=== PATIENT | female | born 1960 | race American Indian/Alaskan Native ===

== ENCOUNTER 2017-09-22 15:35 | Emergency (ER) | payer BC, OTHER ==
[~2017-09-22] VITALS: Ht 165.1 cm; Wt 64.0 kg
[~2017-09-22 15:35] MED LIST: HYDR-569 PO
[2017-09-22 20:37] LABS: BASOPHILS # (AUTO) 0.1 X10'3 (0-0.2); EOSINOPHILS # (AUTO) 0.2 X10'3 (0-0.9); HEMATOCRIT 26.7 % (35.0-45.0); HEMOGLOBIN 8.9 g/dl (12.0-16.0); MEAN CORPUSCULAR HEMOGLOBIN 29.2 PG (27.0-31.0); MEAN CORPUSCULAR HGB CONC 33.1 % (33.0-36.5); MEAN CORPUSCULAR VOLUME 88.3 FL (78-98); MEAN PLATELET VOLUME 7.5 FL (7.4-10.4); MONOCYTES # (AUTO) 0.7 X10'3 (0-0.9); MONOCYTES % (AUTO) 9.1 % (2-12); NEUTROPHILS # (AUTO) 5.2 X10'3 (1.8-7.7); NEUTROPHILS % (AUTO) 63.9 % (42-75); PLATELET COUNT 427 X10'3 (140-440); RED BLOOD COUNT 3.03 X10'6 (4.20-5.60); RED CELL DISTRIBUTION WIDTH 22.4 % (11.5-14.5); WHITE BLOOD COUNT 8.1 X10'3 (4.5-11.0)
[2017-09-22 20:49] LABS: PARTIAL THROMBOPLASTIN TIME 25 SECONDS (22-32); PROTHROMBIN TIME 10.5 SECONDS (9.0-12.0)
[2017-09-22] MEDS ORDERED: normal saline 1000ml 1,000 ML IV ONE (20:50)
[2017-09-22 21:00] LABS: ALANINE AMINOTRANSFERASE 47 U/L (12-78); ALBUMIN 2.3 G/DL (3.4-5.0); ALBUMIN/GLOBULIN RATIO 0.4 (1.1-1.5); ALKALINE PHOSPHATASE 937 IU/L (46-116); ANION GAP 6 (8-16); ASPARTATE AMINO TRANSFERASE 58 U/L (10-37); BILIRUBIN,TOTAL 2.4 MG/DL (0.1-1.0); BLOOD UREA NITROGEN 16 MG/DL (7-18); BUN/CREATININE RATIO 21.3 (6.6-38.0); CALCIUM 8.3 MG/DL (8.5-10.1); CHLORIDE 103 MMOL/L (99-107); CREATININE 0.75 MG/DL (0.40-0.90); ETHANOL < 0.010 GM/DL (0.0-0.010); GLUCOSE 104 MG/DL (70-104); LIPASE 115 U/L (73-393); POTASSIUM 3.7 MMOL/L (3.5-5.1); SODIUM 140 MMOL/L (135-145); TOTAL CARBON DIOXIDE 30.7 MMOL/L (24-32); eGFR 80 ML/MIN
[2017-09-22 21:33] LABS: ANISOCYTOSIS 3+; PLATELET ESTIMATE NORMAL
[2017-09-22 21:35] LABS: MICROCYTOSIS 1+; STOMATOCYTES 2+
[2017-09-22 21:36] LABS: POLYCHROMASIA FEW
[2017-09-22 21:43] LABS: UA COLLECTION TYPE CLN CATCH MIDSTREAM
[2017-09-22 21:44] LABS: CLARITY,URINE CLEAR (Clear); COLOR,URINE YELLOW (Yellow); GLUCOSE, URINE NEGATIVE (Neg); KETONES,URINE NEGATIVE (Neg); LEUKOCYTE ESTERASE ,URINE NEGATIVE (Neg); NITRITES, URINE NEGATIVE (Neg); OCCULT BLOOD,URINE NEGATIVE (Neg); PROTEIN,URINE NEGATIVE (Neg)
[2017-09-22 21:55] LABS: URINE AMPHETAMINE SCREEN POSITIVE (Neg); URINE BARBITUATE SCREEN NEGATIVE (Neg); URINE BENZODIAZEPINES SCREEN POSITIVE (Neg); URINE CANNABINOID SCREEN POSITIVE (Neg); URINE COCAINE SCREEN NEGATIVE (Neg); URINE METHADONE SCREEN NEGATIVE (Neg); URINE OPIATE SCREEN POSITIVE (Neg); URINE PHENCYCLIDINE SCREEN NEGATIVE (Neg)
[2017-09-22] MEDS ORDERED: clindamycin 150mg capsule PO ONE (22:40)
[2017-09-22] MEDS ORDERED: spironolactone 25 MG tablet PO SCH (22:40)
[2017-09-22] MEDS ORDERED: furosemide 20MG tablet PO ONE (22:40)
[2017-09-22] MEDS ORDERED: LIDOcaine 1.5% w/epinephrine 1:200,000 5ml ampul IJ ONE (22:40)
[2017-09-22] MEDS ORDERED: FURO-150 PO (22:46)
[2017-09-22] MEDS ORDERED: CLIN-80 PO (22:46)
[2017-09-22] MEDS ORDERED: SPIR25TA PO (22:46)
[2017-09-22 23:31] VITALS: BP 115/77
== END 2017-09-22 23:33 | disposition home or self-care (01) ==
LOC: ER 15:35
DX: L02.31 Cutaneous abscess of buttock (principal); K72.90 Hepatic failure, unspecified without coma; F15.10 Other stimulant abuse, uncomplicated; F11.10 Opioid abuse, uncomplicated; R60.0 Localized edema; E46 Unspecified protein-calorie malnutrition; G89.29 Other chronic pain; Z90.49 Acquired absence of other specified parts of digestive tract; Z68.23 Body mass index [BMI] 23.0-23.9, adult; Z88.0 Allergy status to penicillin; Z88.2 Allergy status to sulfonamides; Z88.5 Allergy status to narcotic agent; Z88.8 Allergy status to other drugs, medicaments and biological substances; Z79.899 Other long term (current) drug therapy
CPT/HCPCS: 36415; 71045; 74176; 80053; 80305; 80320; 81003; 82140; 83690; 83880; 84484; 85025; 85610; 85730; 93005; 96360; 99285; A6449; J3490

== ENCOUNTER 2018-09-06 08:46 | Inpatient (IN) | payer BC, OTHER ==
[~2018-09-06] VITALS: Ht 165.1 cm; Wt 59.7 kg
[~2018-09-06 08:46] MED LIST changes: +FURO-150 PO; +HYDR-4383 PO; -HYDR-569 PO; +SPIR25TA PO
[2018-09-06] MEDS ORDERED: vancomycin/NS 1 GM ADD-VANTAGE 250 ML IV ONE (09:05)
[2018-09-06] MEDS ORDERED: normal saline 1000ML IV soln IV ONE (09:05)
[2018-09-06 09:38] LABS: BASOPHILS % (AUTO) 0.8 % (0-1); EOSINOPHILS % (AUTO) 0.3 % (0-6); HEMATOCRIT 31.4 % (35.0-45.0); HEMOGLOBIN 10.7 g/dl (12.0-16.0); LYMPHOCYTES # (AUTO) 0.5 X10'3 (1.1-4.8); LYMPHOCYTES % (AUTO) 8.5 % (21-51); MEAN CORPUSCULAR HEMOGLOBIN 31.3 PG (27.0-31.0); MEAN CORPUSCULAR HGB CONC 34.1 g/dL (33.0-36.5); MEAN CORPUSCULAR VOLUME 91.9 FL (78-98); MEAN PLATELET VOLUME 7.1 FL (7.4-10.4); MONOCYTES # (AUTO) 0.4 X10'3 (0-0.9); MONOCYTES % (AUTO) 6.2 % (2-12); NEUTROPHILS # (AUTO) 4.8 X10'3 (1.8-7.7); NEUTROPHILS % (AUTO) 84.2 % (42-75); PLATELET COUNT 212 X10'3 (140-440); RED BLOOD COUNT 3.41 X10'6 (4.20-5.60); RED CELL DISTRIBUTION WIDTH 19.4 % (11.5-14.5); WHITE BLOOD COUNT 5.7 X10'3 (4.5-11.0)
[2018-09-06] MEDS ORDERED: fentaNYL/PF 50MCG/1 ML 2ML syringe IV ONE (09:45)
[2018-09-06 09:48] LABS: INR 1.1 INR; PARTIAL THROMBOPLASTIN TIME 26 SECONDS (22-32); PROTHROMBIN TIME 10.7 SECONDS (9.0-12.0)
[2018-09-06 09:59] LABS: ALANINE AMINOTRANSFERASE 28 U/L (12-78); ALBUMIN 3.6 G/DL (3.4-5.0); ALBUMIN/GLOBULIN RATIO 0.9 (1.1-1.5); ALKALINE PHOSPHATASE 190 IU/L (46-116); ANION GAP 11 (8-16); ASPARTATE AMINO TRANSFERASE 33 U/L (10-37); BILIRUBIN,TOTAL 0.2 MG/DL (0.1-1.0); BLOOD UREA NITROGEN 30 MG/DL (7-18); BUN/CREATININE RATIO 44.1 (6.6-38.0); CALCIUM 9.4 MG/DL (8.5-10.1); CHLORIDE 106 MMOL/L (99-107); CREATININE 0.68 MG/DL (0.40-0.90); GLUCOSE 136 MG/DL (70-104); POTASSIUM 3.6 MMOL/L (3.5-5.1); SODIUM 143 MMOL/L (135-145); TOTAL CARBON DIOXIDE 25.7 MMOL/L (24-32); TOTAL PROTEIN 7.8 G/DL (6.4-8.2); eGFR 89 ML/MIN
[2018-09-06] MEDS ORDERED: iohexol 300mg/ml 100ml inj. ONE (10:12)
[2018-09-06 10:19] LABS: ANISOCYTOSIS 2+; ELLIPTOCYTES 2+; PLATELET ESTIMATE NORMAL; POLYCHROMASIA FEW; TEAR DROP CELLS FEW
[2018-09-06] MEDS ORDERED: CefTRIAXone 2gm/D5W 50ml 50 ML IV ONE ×2 (11:35→12:20)
[2018-09-06] MEDS ORDERED: potassium Cl 40MEQ/NS 500ml 500 ML IV PRN ×2 (11:45)
[2018-09-06] MEDS ORDERED: ondansetron/PF 4mg/2ml inj IV PRN (11:45)
[2018-09-06] MEDS ORDERED: HYDROcodone/acetaminophen 5mg/325mg tablet PO PRN (11:45)
[2018-09-06] MEDS ORDERED: mag hydrox/Alum hydrox/simeth 30ml oral suspension PO PRN (11:45)
[2018-09-06] MEDS ORDERED: bisacodyl 10mg suppository rectal RC PRN (11:45)
[2018-09-06] MEDS ORDERED: magnesium 4gm in 100ml NS 100 ML IV PRN (11:45)
[2018-09-06] MEDS ORDERED: HYDROcodone/acetaminophen 10/325mg tab PO PRN (11:45)
[2018-09-06] MEDS ORDERED: acetaminophen 325mg tablet PO PRN (11:45)
[2018-09-06] MEDS ORDERED: magnesium Cl slow-release 64mg tablet PO PRN (11:45)
[2018-09-06] MEDS ORDERED: potassium Cl 20 mEq SR tablet PO PRN ×2 (11:45)
[2018-09-06] MEDS ORDERED: magnesium hydroxide 30ml (MOM) UD suspension PO PRN (11:45)
[2018-09-06] MEDS ORDERED: magnesium 2GM in 50ml NS 50 ML IV PRN (11:45)
[2018-09-06] MEDS ORDERED: OXYC60TA7 PO (12:23)
[2018-09-06] MEDS ORDERED: HYDR4TAB45 PO (12:24)
[2018-09-06] MEDS ORDERED: LORA0.5T PO (12:24)
[2018-09-06] MEDS ORDERED: MULT-933 PO (12:25)
[2018-09-06] MEDS ORDERED: CLON-514 PO (12:29)
[2018-09-06] MEDS: potassium Cl 20mEq in NS 1,000 ML IV SCH ×3 (12:52→23:58)
[2018-09-06] MEDS: HYDROmorphone 2mg tablet PO PRN ×2 (14:17→22:35)
[2018-09-06 15:45] VITALS: BP 106/62
--- NOTE | 2018-09-06 15:45 | NUR ---
RECEIVED TO ROOM 4008, A/O X 4
[2018-09-06] MEDS: oxyCODONE SR 40mg (sust release) tab PO SCH ×2 (17:36→23:58)
[2018-09-06 18:00] VITALS: BP 113/69
--- NOTE | 2018-09-06 18:30 | NUR ---
Received report from Jeanie BOLANOS, assumed care of patient.
[2018-09-06] MEDS ORDERED: vancomycin/NS 1 GM ADD-VANTAGE 250 ML IV SCH (20:00)
[2018-09-06] MEDS: clonazePAM 1mg tablet PO SCH (20:16)
[2018-09-06] MEDS: docusate sod 100mg capsule PO SCH (20:16)
[2018-09-06] MEDS: VANCOMYCIN 750MG IV in NS 250 ML IV SCH (21:45)
[2018-09-06 22:00] VITALS: BP 104/59
[2018-09-07] VITALS (18 sets, daily range): BP systolic 109–145; BP diastolic 59–109
[2018-09-07] MEDS: HYDROmorphone 2mg tablet PO PRN ×3 (02:54→19:57)
[2018-09-07 06:04] LABS: BASOPHILS % (AUTO) 1.3 % (0-1); EOSINOPHILS # (AUTO) 0.1 X10'3 (0-0.9); EOSINOPHILS % (AUTO) 3.5 % (0-6); HEMATOCRIT 25.2 % (35.0-45.0); HEMOGLOBIN 8.5 g/dl (12.0-16.0); LYMPHOCYTES # (AUTO) 0.7 X10'3 (1.1-4.8); LYMPHOCYTES % (AUTO) 17.3 % (21-51); MEAN CORPUSCULAR HEMOGLOBIN 31.3 PG (27.0-31.0); MEAN CORPUSCULAR HGB CONC 33.8 g/dL (33.0-36.5); MEAN CORPUSCULAR VOLUME 92.6 FL (78-98); MEAN PLATELET VOLUME 7.1 FL (7.4-10.4); MONOCYTES # (AUTO) 0.4 X10'3 (0-0.9); MONOCYTES % (AUTO) 9.5 % (2-12); NEUTROPHILS # (AUTO) 2.6 X10'3 (1.8-7.7); NEUTROPHILS % (AUTO) 68.4 % (42-75); PLATELET COUNT 160 X10'3 (140-440); RED BLOOD COUNT 2.72 X10'6 (4.20-5.60); RED CELL DISTRIBUTION WIDTH 19.3 % (11.5-14.5); WHITE BLOOD COUNT 3.9 X10'3 (4.5-11.0)
[2018-09-07 06:16] LABS: ALANINE AMINOTRANSFERASE 20 U/L (12-78); ALBUMIN 2.7 G/DL (3.4-5.0); ALBUMIN/GLOBULIN RATIO 0.8 (1.1-1.5); ALKALINE PHOSPHATASE 147 IU/L (46-116); ANION GAP 8 (8-16); ASPARTATE AMINO TRANSFERASE 27 U/L (10-37); BILIRUBIN,TOTAL 0.2 MG/DL (0.1-1.0); BLOOD UREA NITROGEN 18 MG/DL (7-18); BUN/CREATININE RATIO 36.7 (6.6-38.0); CALCIUM 8.4 MG/DL (8.5-10.1); CHLORIDE 109 MMOL/L (99-107); CREATININE 0.49 MG/DL (0.40-0.90); GLUCOSE 90 MG/DL (70-104); MAGNESIUM 1.7 MG/DL (1.5-2.4); POTASSIUM 3.9 MMOL/L (3.5-5.1); SODIUM 142 MMOL/L (135-145); TOTAL CARBON DIOXIDE 25.5 MMOL/L (24-32); eGFR > 90 ML/MIN
[2018-09-07 06:21] LABS: INR 1.1 INR; PROTHROMBIN TIME 11.3 SECONDS (9.0-12.0)
--- NOTE | 2018-09-07 06:34 | NUR ---
Report given to Ethel BOLANOS and Reena BOLANOS.
[2018-09-07] MEDS: K and/or MAG REPLACEMENT MC SCH (07:53)
[2018-09-07] MEDS: CefTRIAXone/D5W-Rocephin 1gm 50 ML IV SCH (08:00)
[2018-09-07] MEDS: enoxaparin 40mg/0.4ml syringe SUBCUT SCH (09:08)
[2018-09-07] MEDS: multivitamins, therapeutics tablet PO SCH (09:09)
[2018-09-07] MEDS: docusate sod 100mg capsule PO SCH ×2 (09:09→19:53)
[2018-09-07] MEDS: oxyCODONE SR 40mg (sust release) tab PO SCH ×2 (09:09→16:00)
[2018-09-07] MEDS: clonazePAM 1mg tablet PO SCH ×2 (09:09→21:02)
[2018-09-07] MEDS: VANCOMYCIN 750MG IV in NS 250 ML IV SCH ×2 (11:25→21:52)
[2018-09-07] MEDS ORDERED: heparin sodium, porcine/PF 100unit/ml 5ML syringe IV ONE (11:35)
--- NOTE | 2018-09-07 14:14 | NUR ---
Malnutrition consult: Pt admit w/ L deltoid cellulitis w/ abscess/carbuncle to OR for I&D today per MD. Pt provided written/verbal high protein ed w/ RD contact information. Pt has hx finishing chemo/radiation in July this year for non-Hodgkins lymphoma and sees oncologist. Pt unable to tolerate most foods r/t diarrhea per pt and mainly drinks ONS vanilla boosts at home for nutrition needs. Pt reports 2000kcal diet mainly from 8 Boosts/day while at [place] and only eats cream of wheat, almond milk, and agrees to vanilla ensure high protein QID to receive 2 at dinners once diet advances to regular post-op. No neutropenic diet per MD given neutrophils WNL even though WBC 3.9. Pt PO 100% clear liquid diet and states 130# (59kg) last teusday at PCP has been gaining wt past year; no visible muscle/fat wasting at this time. Current pt wt likely error since not scaled; RD d/w RN for new scaled wt. At this time pt does not meet minimum 2 malnutrition criteria. Will continue to monitor. Addendum: 09/07/18 at [address] Amended: Links added. Addendum: 09/07/18 at [address] F/u pt scaled wt 59.7 kg per RN; pt has no wt loss at this time.
[2018-09-07] MEDS ORDERED: ondansetron/PF 4mg/2ml inj ONE (16:06)
[2018-09-07] MEDS ORDERED: neostigmine methylsulfate 1 MG/ML 10ml vial ONE (16:06)
[2018-09-07] MEDS ORDERED: sevoflurane 250ml liquid IH ONE (16:06)
[2018-09-07] MEDS ORDERED: glycopyrrolate 0.2mg/ml inj ONE (16:06)
[2018-09-07] MEDS ORDERED: ePHEDrine 50MG/ML INJ. ONE (16:06)
[2018-09-07] MEDS ORDERED: fentaNYL/PF 50MCG/1 ML 2ML syringe ONE ×2 (16:08→16:42)
[2018-09-07] MEDS ORDERED: rocuronium 10mg/ml inj IV ONE (16:25)
[2018-09-07] MEDS ORDERED: propofol inj 20 ML IV ONE (16:25)
[2018-09-07] MEDS ORDERED: dexamethasone sod phosphate 4mg/ml inj. ONE (16:25)
[2018-09-07] MEDS ORDERED: LIDOcaine 2% (20mg/ml) 5ml vial ONE (16:25)
[2018-09-07] MEDS ORDERED: midazolam 2 mg/2 ml injection ONE (16:56)
[2018-09-07] MEDS ORDERED: ketamine 50 mg/ml 10ml vial ONE (16:57)
[2018-09-07] MEDS ORDERED: ringers solution, lacted 1,000 ML IV SCH (17:11)
[2018-09-07] MEDS ORDERED: meperidine/PF 25mg/ml syringe IV PRN (17:15)
[2018-09-07] MEDS ORDERED: HYDROmorphone inj. 0.5 MG/0.5 ML DISP.SYRIN IV PRN (17:15)
[2018-09-07] MEDS ORDERED: ondansetron/PF 4mg/2ml inj IV PRN ×2 (17:15→17:55)
[2018-09-07] MEDS ORDERED: meperidine/PF 50mg/ml syringe ONE (17:26)
--- NOTE | 2018-09-07 17:38 | NUR ---
Received from OR via , accompanied by Anesthesiologist DR DUNCAN and report given by Anesthesiolgist. AWAKE AND C/O SEVERE LT SHOULDER INCISION PAIN. WILL MEDICATE. VITALS STABLE. DRESSING DI.
[2018-09-07] MEDS: HYDROmorphone inj. 0.5 MG/0.5 ML DISP.SYRIN IV PRN ×2 (17:47→18:45)
--- NOTE | 2018-09-07 17:48 | NUR ---
Report called to receiving nurse. Transferred via BED Belongings . Special Issues communicated to receiving nurse. AWAKE AND ORIENTED. VITALS STABLE. DRESSING DI. STATES PAIN IMPROVING. TO ORTHO RM 4000 AT THIS TIME.
[2018-09-07] MEDS ORDERED: bisacodyl 10mg suppository rectal RC PRN (17:55)
[2018-09-07] MEDS ORDERED: diphenhydrAMINE 25mg capsule PO PRN ×2 (17:55)
[2018-09-07] MEDS: meperidine/PF 25mg/ml syringe IV PRN ×4 (17:55→18:33)
[2018-09-07] MEDS ORDERED: acetaminophen 325mg tablet PO PRN (17:55)
[2018-09-07] MEDS ORDERED: magnesium hydroxide 30ml (MOM) UD suspension PO PRN (17:55)
[2018-09-07 18:32] LABS: HEMATOCRIT 25.3 % (35.0-45.0); HEMOGLOBIN 8.6 g/dl (12.0-16.0); MEAN CORPUSCULAR HEMOGLOBIN 31.3 PG (27.0-31.0); MEAN CORPUSCULAR HGB CONC 33.9 g/dL (33.0-36.5); MEAN CORPUSCULAR VOLUME 92.4 FL (78-98); MEAN PLATELET VOLUME 7.5 FL (7.4-10.4); PLATELET COUNT 153 X10'3 (140-440); RED BLOOD COUNT 2.74 X10'6 (4.20-5.60); RED CELL DISTRIBUTION WIDTH 18.7 % (11.5-14.5); WHITE BLOOD COUNT 3.9 X10'3 (4.5-11.0)
[2018-09-07] MEDS ORDERED: oxyCODONE SR 40mg (sust release) tab PO ONE (19:10)
[2018-09-07] MEDS: LORazepam 0.5 MG tablet PO PRN (19:13)
[2018-09-07] MEDS ORDERED: HYDROmorphone 2mg/ml vial IV PRN (19:25)
[2018-09-07] MEDS: sennosides 8.6mg tablet PO SCH (19:53)
[2018-09-07] MEDS: ketorolac trometh. 30mg/ml inj. IV SCH (19:57)
[2018-09-07] MEDS: potassium Cl 20mEq in NS 1,000 ML IV SCH (21:51)
[2018-09-07 23:08] LABS: CLARITY,URINE CLEAR (Clear); COLOR,URINE YELLOW (Yellow); GLUCOSE, URINE NEGATIVE (Neg); KETONES,URINE NEGATIVE (Neg); LEUKOCYTE ESTERASE ,URINE NEGATIVE (Neg); NITRITES, URINE NEGATIVE (Neg); OCCULT BLOOD,URINE LARGE (Neg); PH,URINE 5.5 (4.8-8.0); PROTEIN,URINE NEGATIVE (Neg); UROBILINOGEN,URINE 0.2 E.U/dL (0.2-1.0)
[2018-09-07 23:10] LABS: UA COLLECTION TYPE CLN CATCH MIDSTREAM
[2018-09-07 23:21] LABS: URINE AMPHETAMINE SCREEN NEGATIVE (Neg); URINE BARBITUATE SCREEN NEGATIVE (Neg); URINE BENZODIAZEPINES SCREEN POSITIVE (Neg); URINE CANNABINOID SCREEN NEGATIVE (Neg); URINE COCAINE SCREEN NEGATIVE (Neg); URINE METHADONE SCREEN NEGATIVE (Neg); URINE OPIATE SCREEN POSITIVE (Neg); URINE PHENCYCLIDINE SCREEN NEGATIVE (Neg)
[2018-09-07 23:38] LABS: BACTERIA,URINE FEW /HPF (Neg); MUCUS STRANDS MANY /LPF (Neg); SQUAMOUS EPITHELIAL CELL,UR MANY /LPF (FEW); WBC,URINE 0-4 /HPF (0-4)
[2018-09-07 23:39] LABS: RBC,URINE 50-100 /HPF (0-2)
[2018-09-08] VITALS (12 sets, daily range): BP systolic 96–133; BP diastolic 53–77
[2018-09-08] MEDS: HYDROmorphone 2mg tablet PO PRN ×6 (00:11→20:52)
[2018-09-08] MEDS: oxyCODONE SR 40mg (sust release) tab PO SCH ×3 (01:06→15:40)
[2018-09-08] MEDS: ketorolac trometh. 30mg/ml inj. IV SCH ×3 (02:08→13:22)
--- NOTE | 2018-09-08 06:00 | NUR ---
Patient in room ORTHO 4008. I have received report from ROSETTE BOLANOS and had the opportunity to ask questions and assume patient care.
[2018-09-08 06:01] LABS: BASOPHILS % (AUTO) 0.9 % (0-1); EOSINOPHILS % (AUTO) 1.2 % (0-6); HEMOGLOBIN 7.1 g/dl (12.0-16.0); LYMPHOCYTES # (AUTO) 0.6 X10'3 (1.1-4.8); LYMPHOCYTES % (AUTO) 19.7 % (21-51); MEAN CORPUSCULAR HEMOGLOBIN 31.4 PG (27.0-31.0); MEAN CORPUSCULAR HGB CONC 33.8 g/dL (33.0-36.5); MEAN CORPUSCULAR VOLUME 92.7 FL (78-98); MEAN PLATELET VOLUME 7.2 FL (7.4-10.4); MONOCYTES # (AUTO) 0.3 X10'3 (0-0.9); MONOCYTES % (AUTO) 8.4 % (2-12); NEUTROPHILS # (AUTO) 2.3 X10'3 (1.8-7.7); NEUTROPHILS % (AUTO) 69.8 % (42-75); PLATELET COUNT 138 X10'3 (140-440); RED BLOOD COUNT 2.25 X10'6 (4.20-5.60); RED CELL DISTRIBUTION WIDTH 18.8 % (11.5-14.5); WHITE BLOOD COUNT 3.3 X10'3 (4.5-11.0)
[2018-09-08 06:07] LABS: HEMATOCRIT 20.9 % (35.0-45.0)
--- NOTE | 2018-09-08 06:24 | NUR ---
Report given to Anirudh BOLANOS.
[2018-09-08 06:25] LABS: ALANINE AMINOTRANSFERASE 19 U/L (12-78); ALBUMIN 2.4 G/DL (3.4-5.0); ALBUMIN/GLOBULIN RATIO 0.9 (1.1-1.5); ALKALINE PHOSPHATASE 124 IU/L (46-116); ANION GAP 8 (8-16); ASPARTATE AMINO TRANSFERASE 23 U/L (10-37); BILIRUBIN,TOTAL 0.2 MG/DL (0.1-1.0); BLOOD UREA NITROGEN 16 MG/DL (7-18); BUN/CREATININE RATIO 29.6 (6.6-38.0); CALCIUM 8.1 MG/DL (8.5-10.1); CHLORIDE 108 MMOL/L (99-107); CREATININE 0.54 MG/DL (0.40-0.90); GLUCOSE 72 MG/DL (70-104); MAGNESIUM 1.7 MG/DL (1.5-2.4); POTASSIUM 3.8 MMOL/L (3.5-5.1); SODIUM 142 MMOL/L (135-145); TOTAL CARBON DIOXIDE 25.8 MMOL/L (24-32); TOTAL PROTEIN 5.2 G/DL (6.4-8.2); eGFR > 90 ML/MIN
--- NOTE | 2018-09-08 06:42 | NUR ---
PAGER ID: [phone] MESSAGE: LILLIANA [phone] RE: FRANCIA [phone] CRITICAL HCT 20.9 ALBIN LÓPEZ ORTHO AWARE, WILL NOTIFY DAY HOSPITALIST ALSO.
[2018-09-08] MEDS: LORazepam 0.5 MG tablet PO PRN ×2 (06:54→13:16)
[2018-09-08] MEDS: clonazePAM 1mg tablet PO SCH ×2 (07:37→19:46)
[2018-09-08] MEDS: docusate sod 100mg capsule PO SCH ×2 (07:37→19:46)
[2018-09-08] MEDS: CefTRIAXone/D5W-Rocephin 1gm 50 ML IV SCH (07:37)
[2018-09-08] MEDS: multivitamins, therapeutics tablet PO SCH (07:38)
[2018-09-08] MEDS: enoxaparin 40mg/0.4ml syringe SUBCUT SCH (07:38)
[2018-09-08] MEDS: K and/or MAG REPLACEMENT MC SCH (08:00)
--- NOTE | 2018-09-08 08:45 | NUR ---
LILLIANA [phone] RE: FRANCIA [phone] CRITICAL HCT 20.9 PAGED [facility] HOSPITALIST AND MADE ALBIN HUDSON AWARE THIS AM.
[2018-09-08] MEDS ORDERED: HYDROmorphone 1 mg/ml syringe IV PRN (09:22)
[2018-09-08] MEDS ORDERED: VANCOMYCIN LEVEL IV NR (09:30)
[2018-09-08] MEDS: potassium Cl 20mEq in NS 1,000 ML IV SCH (09:53)
[2018-09-08] MEDS: lactose-reduced food (Ensure Enlive) - 237ml bottle PO SCH ×4 (10:30→18:00)
[2018-09-08] MEDS: VANCOMYCIN 750MG IV in NS 250 ML IV SCH (10:59)
[2018-09-08] MEDS ORDERED: lactose-reduced food (Ensure High Protein) 237ml bottle PO SCH (13:00)
[2018-09-08 13:13] LABS: % IRON SATURATION 21 % (11-46); IRON 54 UG/DL (49-151); TOTAL IRON BINDING CAPACITY 252 UG/DL (259-388)
--- NOTE | 2018-09-08 15:47 | NUR ---
Initial: AJIT notified pharmacy of pt accurate wt given vanco is dosed from wt. Pt seen by RD s/p I&D L shoulder; AJIT provided [employer] supplement coupons to use on d/c; pt ONS changed to ensure enlive vanilla 5x/day twice at lunch and dinners in order to meet pt proper protein/kcal wound healing needs given pt uses for main nutrition intake s/p chemo/radiation. Pt PO 25-50% regular diet fluctuating. Pt will likely need further I&D per SOFTWARE CONSULTANT note. LBM 3/5. On MVM for wound healing. Will continue to monitor. Rec: 1. continue regular diet 2. vanilla ensure enlive 5x/day since pt main nutrition intake s/p chemo 3. MVM for wound healing 4. routine bowel care 5. wt per rx Addendum: 09/08/18 at [address] Amended: Links added.
[2018-09-08 16:26] LABS: HEMATOCRIT 24.8 % (35.0-45.0); HEMOGLOBIN 8.4 g/dl (12.0-16.0); MEAN CORPUSCULAR HEMOGLOBIN 31.1 PG (27.0-31.0); MEAN CORPUSCULAR HGB CONC 33.9 g/dL (33.0-36.5); MEAN CORPUSCULAR VOLUME 91.5 FL (78-98); MEAN PLATELET VOLUME 7.2 FL (7.4-10.4); PLATELET COUNT 142 X10'3 (140-440); RED BLOOD COUNT 2.71 X10'6 (4.20-5.60); WHITE BLOOD COUNT 3.1 X10'3 (4.5-11.0)
[2018-09-08] MEDS: ceFAZolin 1GM/D5W- ADD-VANTAGE 50 ML IV SCH (16:42)
[2018-09-08] MEDS: metroNIDAZOLE-Flagyl 500mg/NS 100 ML IV SCH (17:23)
--- NOTE | 2018-09-08 18:00 | NUR ---
Problems reprioritized. Patient report given, questions answered & plan of care reviewed with ROSETTE BOLANOS.
[2018-09-08] MEDS: ketorolac trometh. 30mg/ml inj. IV PRN (19:47)
[2018-09-08] MEDS: sennosides 8.6mg tablet PO SCH (19:57)
[2018-09-08] MEDS ORDERED: vancomycin inj 1,250 MG in normal saline 250ml IV soln 250 ML IV SCH (22:00)
[2018-09-09] MEDS: oxyCODONE SR 40mg (sust release) tab PO SCH ×3 (00:09→15:50)
[2018-09-09] MEDS: metroNIDAZOLE-Flagyl 500mg/NS 100 ML IV SCH ×3 (00:10→16:38)
[2018-09-09] MEDS: ceFAZolin 1GM/D5W- ADD-VANTAGE 50 ML IV SCH ×3 (00:10→15:50)
[2018-09-09] MEDS: potassium Cl 20mEq in NS 1,000 ML IV SCH ×2 (00:19→16:36)
[2018-09-09] MEDS: HYDROmorphone 2mg tablet PO PRN ×7 (02:22→20:42)
[2018-09-09] MEDS: ketorolac trometh. 30mg/ml inj. IV PRN ×3 (03:38→16:45)
[2018-09-09 03:51] LABS: BASOPHILS % (AUTO) 1.2 % (0-1); EOSINOPHILS # (AUTO) 0.1 X10'3 (0-0.9); EOSINOPHILS % (AUTO) 4.2 % (0-6); HEMATOCRIT 28.2 % (35.0-45.0); HEMOGLOBIN 9.7 g/dl (12.0-16.0); LYMPHOCYTES # (AUTO) 0.6 X10'3 (1.1-4.8); LYMPHOCYTES % (AUTO) 18.2 % (21-51); MEAN CORPUSCULAR HEMOGLOBIN 31.5 PG (27.0-31.0); MEAN CORPUSCULAR HGB CONC 34.2 g/dL (33.0-36.5); MEAN PLATELET VOLUME 7.2 FL (7.4-10.4); MONOCYTES # (AUTO) 0.3 X10'3 (0-0.9); MONOCYTES % (AUTO) 9.7 % (2-12); NEUTROPHILS # (AUTO) 2.3 X10'3 (1.8-7.7); NEUTROPHILS % (AUTO) 66.7 % (42-75); PLATELET COUNT 135 X10'3 (140-440); RED BLOOD COUNT 3.07 X10'6 (4.20-5.60); RED CELL DISTRIBUTION WIDTH 18.2 % (11.5-14.5); WHITE BLOOD COUNT 3.4 X10'3 (4.5-11.0)
[2018-09-09 04:00] LABS: ALANINE AMINOTRANSFERASE 16 U/L (12-78); ALBUMIN 2.5 G/DL (3.4-5.0); ALBUMIN/GLOBULIN RATIO 0.8 (1.1-1.5); ALKALINE PHOSPHATASE 132 IU/L (46-116); ANION GAP 6 (8-16); ASPARTATE AMINO TRANSFERASE 20 U/L (10-37); BILIRUBIN,TOTAL 0.2 MG/DL (0.1-1.0); BLOOD UREA NITROGEN 20 MG/DL (7-18); BUN/CREATININE RATIO 31.7 (6.6-38.0); CALCIUM 8.1 MG/DL (8.5-10.1); CHLORIDE 108 MMOL/L (99-107); CREATININE 0.63 MG/DL (0.40-0.90); GLUCOSE 87 MG/DL (70-104); MAGNESIUM 1.7 MG/DL (1.5-2.4); POTASSIUM 4.2 MMOL/L (3.5-5.1); SODIUM 141 MMOL/L (135-145); TOTAL PROTEIN 5.5 G/DL (6.4-8.2); eGFR > 90 ML/MIN
[2018-09-09 06:00] VITALS: BP 143/75
--- NOTE | 2018-09-09 06:29 | NUR ---
notified Rachel Echeverria that patient had increased pain throughout the night. Orders to increase Dilaudid to Q 2
--- NOTE | 2018-09-09 06:31 | NUR ---
Problems reprioritized. Patient report given, questions answered & plan of care reviewed with LUIS MIGUEL Oleary.
[2018-09-09] MEDS ORDERED: naloxone 0.4 mg/ml inj IV PRN (06:40)
[2018-09-09] MEDS: K and/or MAG REPLACEMENT MC SCH (07:47)
[2018-09-09] MEDS: clonazePAM 1mg tablet PO SCH ×2 (07:49→20:41)
[2018-09-09] MEDS: docusate sod 100mg capsule PO SCH ×2 (07:49→20:00)
[2018-09-09] MEDS: multivitamins, therapeutics tablet PO SCH (07:50)
[2018-09-09] MEDS: enoxaparin 40mg/0.4ml syringe SUBCUT SCH (07:50)
[2018-09-09] MEDS: lactose-reduced food (Ensure Enlive) - 237ml bottle PO SCH ×5 (07:56→18:31)
[2018-09-09 10:00] VITALS: BP 121/72
[2018-09-09 10:09] LABS: OCCULT BLOOD STOOL NEGATIVE (Neg)
[2018-09-09] MEDS ORDERED: HYDROmorphone 1 mg/ml syringe IV ONE (11:00)
[2018-09-09] MEDS: LORazepam 0.5 MG tablet PO PRN ×2 (12:20→21:34)
--- NOTE | 2018-09-09 13:52 | NUR ---
RECOMMEND: 1. Daily bathing with no rinse skin cleanser. 2. Cream/Lotion to be applied to skin after bathing. 3. Wound VAC to left upper arm. Routine dressing changes by the Wound Care nurse. Settings 125mmHg, low, cont. 4. Dietary consult Addendum: 09/09/18 at 1359 by Rose Daigle RN Amended: Links added.
--- NOTE | 2018-09-09 14:07 | NUR ---
WOUND VAC EDUCATION PROVIDED BY WOUND CARE 1. Patient instructed to call the Wound Center or their Home Health Agency immediately if: * They notice a change in the color or amount of the fluid in the canister. * Their wound looks more red than usual or has a foul smell. * The skin around their wound looks reddened or irritated. * The dressing feels loose or appears to be loose. * They experience any increase or changes in their pain. * The alarm will not turn off. 2. Patient instructed that they should not be disconnected from suction for more than 2 hours at a time. * If they are not able to get the suction back on, they need to remove the dressing and take all of the foam out of the wound. * Then moisten sterile gauze with normal saline and place on/in the wound. * Change the dressing once a day until arrangements have been made to replace the wound vac dressing. 3. Patient instructed to turn the wound vac machine OFF and call 911 or go to the ED immediately if their canister fills rapidly with blood. 4. If any of these occur while in the hospital tell a nurse immediately. 5> Be sure to eat well balanced diet and include lean meat for protein to promote healing Addendum: 09/09/18 at 1408 by Rose Daigle RN Amended: Links added.
--- NOTE | 2018-09-09 14:18 | NUR ---
PAGER ID: [phone] MESSAGE: LILLIANA [phone] RE: [id number] FRANCIA, NO DC TODAY, WORKING ON [employer] FOR .
[2018-09-09 18:00] VITALS: BP 121/72
--- NOTE | 2018-09-09 18:30 | NUR ---
Patient in room ORTHO 4008. I have received report from LUIS MIGUEL Oleary and had the opportunity to ask questions and assume patient care.
[2018-09-09] MEDS: sennosides 8.6mg tablet PO SCH (21:00)
[2018-09-09 22:00] VITALS: BP 122/69
[2018-09-10] MEDS: ceFAZolin 1GM/D5W- ADD-VANTAGE 50 ML IV SCH ×2 (00:02→07:21)
[2018-09-10] MEDS: metroNIDAZOLE-Flagyl 500mg/NS 100 ML IV SCH ×2 (00:02→08:16)
[2018-09-10] MEDS: HYDROmorphone 2mg tablet PO PRN ×7 (04:17→15:28)
[2018-09-10 04:46] LABS: BASOPHILS % (AUTO) 0.6 % (0-1); EOSINOPHILS # (AUTO) 0.1 X10'3 (0-0.9); EOSINOPHILS % (AUTO) 3.5 % (0-6); HEMATOCRIT 28.9 % (35.0-45.0); HEMOGLOBIN 10.1 g/dl (12.0-16.0); LYMPHOCYTES # (AUTO) 0.6 X10'3 (1.1-4.8); LYMPHOCYTES % (AUTO) 15.6 % (21-51); MEAN CORPUSCULAR HEMOGLOBIN 32.5 PG (27.0-31.0); MEAN CORPUSCULAR VOLUME 92.7 FL (78-98); MEAN PLATELET VOLUME 7.2 FL (7.4-10.4); MONOCYTES # (AUTO) 0.3 X10'3 (0-0.9); MONOCYTES % (AUTO) 8.2 % (2-12); NEUTROPHILS # (AUTO) 2.9 X10'3 (1.8-7.7); NEUTROPHILS % (AUTO) 72.1 % (42-75); PLATELET COUNT 130 X10'3 (140-440); RED BLOOD COUNT 3.12 X10'6 (4.20-5.60); RED CELL DISTRIBUTION WIDTH 18.2 % (11.5-14.5)
[2018-09-10] MEDS: potassium Cl 20mEq in NS 1,000 ML IV SCH ×2 (04:47→10:35)
[2018-09-10 04:53] LABS: ALANINE AMINOTRANSFERASE 17 U/L (12-78); ALBUMIN 2.8 G/DL (3.4-5.0); ALBUMIN/GLOBULIN RATIO 0.9 (1.1-1.5); ALKALINE PHOSPHATASE 132 IU/L (46-116); ANION GAP 7 (8-16); ASPARTATE AMINO TRANSFERASE 21 U/L (10-37); BILIRUBIN,TOTAL 0.2 MG/DL (0.1-1.0); BLOOD UREA NITROGEN 21 MG/DL (7-18); CALCIUM 8.3 MG/DL (8.5-10.1); CHLORIDE 106 MMOL/L (99-107); GLUCOSE 136 MG/DL (70-104); MAGNESIUM 1.8 MG/DL (1.5-2.4); POTASSIUM 4.1 MMOL/L (3.5-5.1); SODIUM 140 MMOL/L (135-145); TOTAL CARBON DIOXIDE 27.4 MMOL/L (24-32); TOTAL PROTEIN 5.8 G/DL (6.4-8.2); eGFR 86 ML/MIN
--- NOTE | 2018-09-10 05:04 | NUR ---
went over assessment with SRN and agree with findings
[2018-09-10 06:00] VITALS: BP 123/70
--- NOTE | 2018-09-10 06:09 | NUR ---
Problems reprioritized. Patient report given, questions answered & plan of care reviewed with LUIS MIGUEL Amos. Addendum: 09/10/18 at 0618 by Chiquis ROCA aly Oleary
--- NOTE | 2018-09-10 06:10 | NUR ---
Patient in room ORTHO 4008. I have received report from ROSETTE BOLANOS and had the opportunity to ask questions and assume patient care.
[2018-09-10] MEDS: K and/or MAG REPLACEMENT MC SCH (07:18)
[2018-09-10] MEDS: oxyCODONE SR 40mg (sust release) tab PO SCH ×3 (07:20→16:28)
[2018-09-10] MEDS: clonazePAM 1mg tablet PO SCH (07:20)
[2018-09-10] MEDS: enoxaparin 40mg/0.4ml syringe SUBCUT SCH (07:21)
[2018-09-10] MEDS: docusate sod 100mg capsule PO SCH (07:21)
[2018-09-10] MEDS: multivitamins, therapeutics tablet PO SCH (07:21)
[2018-09-10] MEDS: ketorolac trometh. 30mg/ml inj. IV PRN ×2 (07:28→15:28)
--- NOTE | 2018-09-10 07:32 | NUR ---
PAGER ID: [phone] MESSAGE: LILLIANA [phone] RE: KOLE [phone] PT HAVING DIARRHEA, CAN WE GET IMMODIUM?
[2018-09-10] MEDS: lactose-reduced food (Ensure Enlive) - 237ml bottle PO SCH ×3 (08:19→13:21)
--- NOTE | 2018-09-10 08:55 | NUR ---
Wound consult regarding large surgical wound to left arm s/p I&D of abscess, wound is noted and patient has been seen for high protein education r/t wound heal. Addendum: 09/10/18 at [address] Amended: Links added.
[2018-09-10] MEDS ORDERED: VANCOMYCIN LEVEL IV NR (09:30)
[2018-09-10 10:00] VITALS: BP 109/69
[2018-09-10] MEDS: LORazepam 0.5 MG tablet PO PRN (10:45)
[2018-09-10] MEDS ORDERED: HYDROmorphone 1 mg/ml syringe IV ONE (11:05)
--- NOTE | 2018-09-10 12:00 | NUR ---
L Shoulder dressing taken off per order. L shoulder wound 17cm length x 4cm width x 1cm depth with no evident bleeding/drainage noted to wound. 4x4 gauze dressing saturated with pink drainage noted on dressing when taken off. Applied 2 pieces of white foam and 1 black foam applied and restarted wound vac under previous settings as ordered.
[2018-09-10] MEDS ORDERED: CEPH500C5 PO (15:20)
[2018-09-10] MEDS ORDERED: HYDR4TAB45 PO (15:20)
--- NOTE | 2018-09-10 16:45 | NUR ---
PATIENT DC HOME SAFELY WITH ROOMMATE. SENT HOME WITH WOUND VAC, INSTRUCTIONS GIVEN. PAIN PRESCRIPTION GIVEN TO PATIENT. PT EXHIBITS UNDERSTANDING OF DC INSTRUCTIONS.
== END 2018-09-10 16:45 | disposition home health service (06) | DRG 580 ==
LOC: ER 08:46 → ED HOLD 11:30 → ORTHO 4S 15:30
PROVIDERS: ADMIT Internal Medicine; ATTEND Internal Medicine
PROC: BP2U1ZZ Computerized Tomography (CT Scan) of Left Upper Extremity using Low Osmolar Contrast (ICD-10-PCS; 2018-09-06)
PROC: 0KB80ZZ Excision of Left Upper Arm Muscle, Open Approach (ICD-10-PCS; 2018-09-07)
PROC: 0J9F0ZZ Drainage of Left Upper Arm Subcutaneous Tissue and Fascia, Open Approach (ICD-10-PCS; 2018-09-07)
PROC: 30233N1 Transfusion of Nonautologous Red Blood Cells into Peripheral Vein, Percutaneous Approach (ICD-10-PCS; principal; 2018-09-08)
DX: L02.414 Cutaneous abscess of left upper limb (principal); D62 Acute posthemorrhagic anemia; L03.114 Cellulitis of left upper limb; D64.9 Anemia, unspecified; G89.4 Chronic pain syndrome; F12.90 Cannabis use, unspecified, uncomplicated; M54.9 Dorsalgia, unspecified; R19.7 Diarrhea, unspecified; L02.434 Carbuncle of left upper limb; B95.61 Methicillin susceptible Staphylococcus aureus infection as the cause of diseases classified elsewhere; Z86.14 Personal history of Methicillin resistant Staphylococcus aureus infection; Z90.49 Acquired absence of other specified parts of digestive tract; Z88.0 Allergy status to penicillin; Z88.2 Allergy status to sulfonamides; Z88.6 Allergy status to analgesic agent; Z90.710 Acquired absence of both cervix and uterus; Z92.21 Personal history of antineoplastic chemotherapy; Z92.3 Personal history of irradiation; Z85.72 Personal history of non-Hodgkin lymphomas
CPT/HCPCS: 96365; 96366; 96375; 99285; Z7506; 36415; 71045; 73201; 80053; 80202; 80305; 81001; 82272; 83540; 83550; 83605; 83735; 84145; 85025; 85027; 85610; 85730; 86885; 86900; 86901; 86920; 87040; 87070; 87075; 87077; 87102; 87186; 93005; A7000; G0378; J0690; J0696; J1100; J1170; J1642; J1650; J1885; J2001; J2175; J2250; J2405; J2704; J2710; J3010; J3370; J3490; J7030; J7120; P9016; Q9967